=== PATIENT | male | born 1960 | race Two or more races ===

== ENCOUNTER 2017-09-23 10:12 | Emergency (ER) | payer OTHER ==
[2017-09-23 10:54] LABS: Protime INR 0.96
[2017-09-23 11:04] LABS: Absolute Monocytes 0.5 K/uL (0.1-1.3); Absolute Neutrophil 3.5 K/uL (1.8-8.0); Basophils % 1.4 % (0-1.3); Eosinophils % 4.8 % (0-4.4); Hematocrit 49.6 % (39.6-49.0); Lymphocytes % 31.3 % (15.3-44.8); MCH 25.4 pg (27.0-35.0); MCV 80.7 fL (80-100); MPV 10.7 fL (7.6-11.3); Monocytes % 7.7 % (3.3-12.3); RBC Red Blood Cell Count 6.14 M/uL (4.33-5.43)
[2017-09-23 11:07] LABS: Potassium 4.2 mEq/L (3.6-5.0)
--- NOTE | 2017-09-23 11:07 | RAD REPORT ---
EXAM DESCRIPTION: RAD - Chest Single View - 09/23/2017 10:57 am CLINICAL HISTORY: Chest pain. COMPARISON: None. FINDINGS: Portable technique limits examination quality. The lungs are grossly clear. The heart is normal in size. No displaced fractures. IMPRESSION: No acute intrathoracic process suspected.
[2017-09-23] MEDS ORDERED: MORPHINE 4 MG/ML SYR ONE (11:08)
[2017-09-23] MEDS ORDERED: ONDANSETRON 4 MG/2 ML VIAL ONE (11:08)
[2017-09-23 11:13] LABS: Albumin 4.2 g/dL (3.2-5.5); Bilirubin Direct 0.2 mg/dL (0-0.2); Bilirubin Total 0.4 mg/dL (0.3-1.2); Magnesium 2.2 mg/dL (1.8-2.5); Protein, Total 7.6 g/dL (6.0-8.3)
--- NOTE | 2017-09-23 13:42 | ER ---
Nurse's Notes [facility] Name: Catie Savage Age: 57 yrs Sex: Male : 1960 Arrival Date: 09/23/2017 Time: 10:15 Bed 15 Private MD: Diagnosis: Chest wall pain Presentation: 09/23 10:16 Presenting complaint: EMS states: Pt was walking outside and had sudden onset of chest jl7 pain and dyspnea. Pt took Viagra last night, no nitro given, 324 mg aspirin given. BP 166/102, 97% on RA, BGL 167. Transition of care: patient was not received from another setting of care. Onset of symptoms was September 23, 2017. Risk Assessment: Do you want to hurt yourself or someone else? Patient reports no desire to harm self or others. Initial Sepsis Screen: Does the patient meet any 2 criteria? No. Patient's initial sepsis screen is negative. Does the patient have a suspected source of infection? No. Patient's initial sepsis screen is negative. Care prior to arrival: Medication(s) given: ASA, 81 mg, x 4, IV initiated. 20 GA, in the left antecubital area, Glucose check: 167 Oxygen administered. via nasal cannula. 10:16 Method Of Arrival: EMS: [facility] jl7 10:16 Acuity: [facility]ISCO 3 jl7 Triage Assessment: 10:25 General: Appears uncomfortable, Behavior is cooperative, anxious. Pain: Complains of jl7 pain in anterior aspect of right upper chest Pain radiates to all over Pain currently is 7 out of 10 on a pain scale. Quality of pain is described as aching, Pain began suddenly, Is continuous. EENT: No signs and/or symptoms were reported regarding the EENT system. Neuro: Level of Consciousness is awake, alert, obeys commands, Oriented to person, place, time, situation. Cardiovascular: Heart tones S1 S2 present Patient's skin is warm and dry. Rhythm is sinus rhythm Chest pain is described as Pain is 7 out of 10 on a pain scale. quality is "It hurts when you touch it." is located in right anterior chest wall radiates "It goes all over when you touch it." began suddenly, episodes are continuous. Respiratory: Airway is patent Respiratory effort is even, unlabored, Respiratory pattern is symmetrical, tachypnea Breath sounds are clear bilaterally. GI: No signs and/or symptoms were reported involving the gastrointestinal system. : No signs and/or symptoms were reported regarding the genitourinary system. Derm: Skin is pink, warm \\T\\ dry. Musculoskeletal: No signs and/or symptoms reported regarding the musculoskeletal system. Historical: - Allergies: 10:19 SHELLFISH; jl7 - PMHx: 10:19 Hypertension; Myocardial infarction; Diabetes - NIDDM; jl7 - Immunization history:: Adult Immunizations unknown. - Social history:: Smoking status: Patient uses tobacco products, chewing tobacco. - Ebola Screening: : No symptoms or risks identified at this time. Screenin:38 Abuse screen: Denies threats or abuse. Denies injuries from another. Nutritional jl7 screening: No deficits noted. Tuberculosis screening: No symptoms or risk factors identified. Fall Risk IV access (20 points). Total Plummer Fall Scale indicates No Risk (0-24 pts). Assessment: 10:38 General: See triage assessment. jl7 11:55 Reassessment: Patient and/or family updated on plan of care and expected duration. Pain jl7 level reassessed. Patient is alert, oriented x 3, equal unlabored respirations, skin warm/dry/pink. Patient states feeling better. Patient states symptoms have improved. Pain: Complains of pain in anterior aspect of right upper chest Pain currently is 6 out of 10 on a pain scale. 13:00 Reassessment: Patient appears in no apparent distress at this time. Patient and/or jl7 family updated on plan of care and expected duration. Pain level reassessed. Patient is alert, oriented x 3, equal unlabored respirations, skin warm/dry/pink. Vital Signs: 10:19 BP 184 / 118; Pulse 75; Resp 24 S; Temp 98.0(O); Pulse Ox 100% on R/A; Pain 8/10; jl7 10:38 BP 157 / 96; Pulse 74; Resp 18; Pulse Ox 99% ; jl7 11:54 BP 142 / 96; Pulse 69; Resp 15; Pulse Ox 98% on R/A; jl7 13:29 BP 167 / 94; Pulse 63; Resp 18; Pulse Ox 99% on R/A; mh5 ED Course: 10:15 Patient arrived in ED. jl7 10:18 Tawanda Bridges PA is PHCP. jr8 10:18 Jerald Santacruz MD is Attending Physician. jr8 10:19 Triage completed. jl7 10:19 Arm band placed on right wrist. jl7 10:23 EKG done, by automotive specialty technician. reviewed by Tawanda LÓPEZ. at1 10:33 Priscilla King, RN is Primary Nurse. jl7 10:38 Maintain EMS IV. Dressing intact. Good blood return noted. Site clean \\T\\ dry. Gauge \\T\\ jl 7 site: 20 Left AC. Patient maintains SpO2 saturation greater than 95% on room air. 10:38 Patient has correct armband on for positive identification. Placed in gown. Bed in low jl7 position. Call light in reach. Side rails up X 1. satellite project site monitor on. Pulse ox on. NIBP on. 10:54 X-ray completed. Portable x-ray completed in exam room. Patient tolerated procedure kp1 well. 10:55 XRAY Chest (1 view) In Process Unspecified. EDMS 13:30 Repeat lab(s) drawn. by me, sent to lab. [facility] 14:00 No provider procedures requiring assistance completed. IV discontinued, intact, jl7 bleeding controlled, No redness/swelling at site. Pressure dressing applied. Administered Medications: 11:03 Drug: Zofran 4 mg Route: IVP; Site: left antecubital; jl7 11:45 Follow up: Response: No adverse reaction jl7 11:05 Drug: morphine 4 mg Route: IVP; Site: left antecubital; jl7 11:45 Follow up: Response: No adverse reaction; Pain is decreased jl7 Outcome: 13:41 Discharge ordered by . jr8 14:00 Discharged to home ambulatory. jl7 14:00 Condition: stable 14:00 Discharge instructions given to patient, Instructed on discharge instructions, follow up and referral plans. medication usage, Demonstrated understanding of instructions, follow-up care, medications, Prescriptions given X 2. 14:01 Patient left the ED. jl7 Signatures: Dispatcher [employer] EDMS Tawanda Bridges PA PA jr8 Camille godinez, educational program director EKG Tat1 Shikha Murdock 5 Priscilla King, RN RN jl7 [place] kp1
--- NOTE | 2017-09-23 13:42 | EDPHYS ---
Physician Documentation [facility] Name: Catie Savage Age: 57 yrs Sex: Male : 1960 Arrival Date: 09/23/2017 Time: 10:15 Bed 15 Private MD: ED Physician Jerald Santacruz HPI: 09/23 11:24 This 57 yrs old Male presents to ER via EMS with complaints of Chest Pain > 30 y/o. jr8 11:24 The patient or guardian reports chest pain that is located primarily in the anterior jr8 chest wall, bilaterally. Onset: acutely, today. The pain does not radiate. Associated signs and symptoms: The patient has no apparent associated signs or symptoms. The chest pain is described as sharp. Duration: The patient or guardian reports a single episode. Modifying factors: The symptoms are alleviated by rest, the symptoms are aggravated by movement, palpation of area. Severity of pain: At its worst the pain was moderate in the emergency department the pain is unchanged. The patient has not experienced similar symptoms in the past. The patient has not recently seen a physician. Patient stated that has had back pain and chest pain for couple of days. While at rest felt ok. Today while at work was much worse so came to ED to be evaluated. 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 Historical: - Allergies: 10:19 SHELLFISH; jl7 - PMHx: 10:19 Hypertension; Myocardial infarction; Diabetes - NIDDM; jl7 - Immunization history:: Adult Immunizations unknown. - Social history:: Smoking status: Patient uses tobacco products, chewing tobacco. - Ebola Screening: : No symptoms or risks identified at this time. ROS: 11:24 Eyes: Negative for injury, pain, redness, and discharge, ENT: Negative for injury, jr8 pain, and discharge, Neck: Negative for injury, pain, and swelling, Respiratory: Negative for shortness of breath, cough, wheezing, and pleuritic chest pain, Abdomen/GI: Negative for abdominal pain, nausea, vomiting, diarrhea, and constipation, MS/Extremity: Negative for injury and deformity, Skin: Negative for injury, rash, and discoloration, Neuro: Negative for headache, weakness, numbness, tingling, and seizure. 11:24 Cardiovascular: Positive for chest pain, Negative for edema, orthopnea, palpitations, paroxysmal nocturnal dyspnea. 11:24 Back: Positive for pain with movement, Negative for pain at rest, radiated pain. Exam: 11:24 Eyes: Pupils equal round and reactive to light, extra-ocular motions intact. Lids and jr8 lashes normal. Conjunctiva and sclera are non-icteric and not injected. Cornea within normal limits. Periorbital areas with no swelling, redness, or edema. ENT: Nares patent. No nasal discharge, no septal abnormalities noted. Tympanic membranes are normal and external auditory canals are clear. Oropharynx with no redness, swelling, or masses, exudates, or evidence of obstruction, uvula midline. Mucous membranes moist. Neck: Trachea midline, no thyromegaly or masses palpated, and no cervical lymphadenopathy. Supple, full range of motion without nuchal rigidity, or vertebral point tenderness. No Meningismus. Cardiovascular: Regular rate and rhythm with a normal S1 and S2. No gallops, murmurs, or rubs. Normal PMI, no JVD. No pulse deficits. Respiratory: Lungs have equal breath sounds bilaterally, clear to auscultation and percussion. No rales, rhonchi or wheezes noted. No increased work of breathing, no retractions or nasal flaring. Abdomen/GI: Soft, non-tender, with normal bowel sounds. No distension or tympany. No guarding or rebound. No evidence of tenderness throughout. Skin: Warm, dry with normal turgor. Normal color with no rashes, no lesions, and no evidence of cellulitis. MS/ Extremity: Pulses equal, no cyanosis. Neurovascular intact. Full, normal range of motion. Neuro: Awake and alert, GCS 15, oriented to person, place, time, and situation. Cranial nerves II-XII grossly intact. Motor strength 5/5 in all extremities. Sensory grossly intact. Cerebellar exam normal. Normal gait. 11:24 Chest/axilla: Inspection: normal, Palpation: tenderness, that is moderate, of the right clavicle, left clavicle, anterior aspect of right upper chest, anterior aspect of left upper chest, right breast and left breast. 11:24 Back: pain, that is moderate, of the left scapular area, right scapular area, left subscapular area and right subscapular area, ROM is painful, normal spinal alignment noted, CVA tenderness, is absent, vertebral tenderness, is not appreciated. Vital Signs: 10:19 BP 184 / 118; Pulse 75; Resp 24 S; Temp 98.0(O); Pulse Ox 100% on R/A; Pain 8/10; jl7 10:38 BP 157 / 96; Pulse 74; Resp 18; Pulse Ox 99% ; jl7 11:54 BP 142 / 96; Pulse 69; Resp 15; Pulse Ox 98% on R/A; jl7 13:29 BP 167 / 94; Pulse 63; Resp 18; Pulse Ox 99% on R/A; mh5 MDM: 10:18 Patient medically screened. jr8 11:24 The patient was not given aspirin in the Emergency Department. Administered by EMS. jr8 13:06 Differential diagnosis: acute myocardial infarction, acute pericarditis, chest wall jr8 pain, cholecystitis, Cholelithiasis costochondritis, esophagitis, gastritis, gastroesophageal reflux disease (GERD), pneumonia, pneumothorax, pulmonary embolus, stable angina, thoracic aortic disection, unstable angina. Data reviewed: vital signs, nurses notes, lab test result(s), EKG, radiologic studies, plain films. Data interpreted: Pulse oximetry: on room air is 98 %. Interpretation: normal. 09/23 10:32 Order name: Basic Metabolic Panel; Complete Time: 11:09/23 10:32 Order name: BNP; Complete Time: 11:24 09/23 10:32 Order name: CBC with Diff; Complete Time: 11:09/23 10:32 Order name: LFT's; Complete Time: 11:09/23 10:32 Order name: Magnesium; Complete Time: 11:09/23 10:32 Order name: PT-INR; Complete Time: 11:15 09/23 10:32 Order name: Troponin (emerg Dept Use Only); Complete Time: 11:14 09/23 10:32 Order name: XRAY Chest (1 view); Complete Time: 11:09 09/23 10:32 Order name: EKG; Complete Time: 10:32 09/23 10:32 Order name: Cardiac monitoring; Complete Time: 10:34 09/23 10:32 Order name: EKG - Nurse/Tech; Complete Time: 10:34 09/23 12:34 Order name: Troponin (emerg Dept Use Only); Complete Time: 13:40 09/23 10:32 Order name: IV Saline Lock; Complete Time: 10:34 09/23 10:32 Order name: Labs collected and sent; Complete Time: 10:38 09/23 10:32 Order name: O2 Per Protocol; Complete Time: 10:33 09/23 10:32 Order name: O2 Sat Monitoring; Complete Time: 10:33 8 Administered Medications: 11:03 Drug: Zofran 4 mg Route: IVP; Site: left antecubital; 7 11:45 Follow up: Response: No adverse reaction jl7 11:05 Drug: morphine 4 mg Route: IVP; Site: left antecubital; 7 11:45 Follow up: Response: No adverse reaction; Pain is decreased jl7 Disposition: 09/23/17 13:41 Discharged to Home. Impression: Chest wall pain. - Condition is Stable. - Discharge Instructions: Chest Wall Pain. - Prescriptions for Ibuprofen 800 mg Oral Tablet - take 1 tablet by ORAL route every 12 hours As needed take with food; 14 tablet. Cyclobenzaprine 10 mg Oral Tablet - take 1 tablet by ORAL route every 8 hours As needed; 30 tablet. - Work release form, Medication Reconciliation Form, Thank You Letter, Antibiotic Education, Prescription Opioid Use form. - Follow up: Private Physician; When: 2 - 3 days; Reason: Recheck today's complaints, Continuance of care, Re-evaluation by your physician. - Problem is new. - Symptoms have improved. Signatures: Dispatcher [employer] EDMS Tawanda Bridges PA PA jr8 Priscilla King RN RN jl7 Corrections: (The following items were deleted from the chart) 14:01 13:41 09/23/2017 13:41 Discharged to Home. Impression: Chest wall pain. Condition is jl7 Stable. Forms are Medication Reconciliation Form, Thank You Letter, Antibiotic Education, Prescription Opioid Use. Follow up: Private Physician; When: 2 - 3 days; Reason: Recheck today's complaints, Continuance of care, Re-evaluation by your physician. Problem is new. Symptoms have improved. jr8
--- NOTE | 2017-09-23 13:59 | EKG ---
Test Date: 2017-09-23 Test Time: 10:15:41 Consumer Safety Officer: LISBETH MEASUREMENT RESULTS: Intervals: Rate: 77 LA: 114 QRSD: 80 QT: 398 QTc: 450 [place]: P: 18 LA: 114 QRS: -27 T: -15 INTERPRETIVE STATEMENTS: Normal sinus rhythm Normal ECG No previous ECG available for comparison Electronically Signed On 09-23-17 13:59:24 CDT by Robert Resendiz
== END 2017-09-23 14:01 | disposition home or self-care (01) ==
LOC: ER 10:12
DX: R07.9 Chest pain, unspecified (principal); I10 Essential (primary) hypertension; E11.9 Type 2 diabetes mellitus without complications; I25.2 Old myocardial infarction; F17.220 Nicotine dependence, chewing tobacco, uncomplicated; Z91.013 Allergy to seafood
CPT/HCPCS: 36415; 71045; 80048; 80076; 83735; 83880; 84484; 85025; 85610; 93005; 96374; 96375; 99285; J2405